=== PATIENT | female | born 1955 | race Caucasian/White ===

== ENCOUNTER → 2017-03-07 | Outpatient (CLI) | payer MEDICAID ==
[2017-03-07 15:02] LABS: Basophils % (A) 0 %; CH 31.2; CHCM 34.6; Eosinophils # (A) 0.1 k/uL (0-0.7); Eosinophils % (A) 2 %; HCT 40.7 % (34.0-46.0); HDW 2.66; HGB 13.8 gm/dL (11.4-16.0); Luc # (Auto) 0.14; Luc % (Auto) 2; Lymphocytes # (A) 1.7 k/uL (1.0-4.8); Lymphocytes % (A) 24 %; MCH 30.7 pg (25.0-35.0); MCHC 33.9 g/dL (31.0-37.0); MCV 90.7 fL (80.0-100.0); Mean Platelet Volume 6.8; Monocytes # (A) 0.5 k/uL (0-1.0); Monocytes % (A) 8 %; Neutrophils # (A) 4.5 k/uL (1.3-7.7); Neutrophils % (A) 64 %; RBC 4.48 m/uL (3.80-5.40); RDW 13.3 % (11.5-15.5); WBC 7.1 k/uL (3.8-10.6); WBC (Perox) 6.53
[2017-03-07 15:14] LABS: Calcium 9.7 mg/dL (8.4-10.2); Potassium 3.7 mmol/L (3.5-5.1); Total Bilirubin 0.5 mg/dL (0.2-1.3); Total Protein 6.9 g/dL (6.3-8.2)
== END | disposition home or self-care (01) ==
LOC: LABWHC1 14:39
PROVIDERS: ATTEND Internal Medicine
DX: R06.00 Dyspnea, unspecified (principal)
CPT/HCPCS: 36415; 80053; 84439; 84443; 85025; 85379

== ENCOUNTER → 2017-03-10 | Outpatient (CLI) | payer MEDICAID ==
[2017-03-10 15:58] LABS: Appearance,Urine Clear (Clear); Bilirubin,Urine Negative (Negative); Glucose,Urine (UA) Negative (Negative); Ketones,Urine Trace (Negative); Leukocyte Esterase,Urine Negative (Negative); Nitrite,Urine Negative (Negative); PH, Urine 5.5 (5.0-8.0); Protein,Urine Trace (Negative); Specific Gravity,Urine 1.029 (1.001-1.035); UA Billing (MACRO vs. MICRO) CHEM
[2017-03-10 16:25] LABS: Non-African American GFR(MDRD) >60 (>60 ml/min/1.73 sqM)
== END | disposition home or self-care (01) ==
LOC: LABWHC1 15:40
PROVIDERS: ATTEND Internal Medicine
DX: N17.9 Acute kidney failure, unspecified (principal)
CPT/HCPCS: 36415; 81003; 82565

== ENCOUNTER → 2017-03-28 | Outpatient (CLI) | payer MEDICAID ==
--- NOTE | 2017-03-29 10:53 | ECHOF ---
Referral Reason:R06.00 Dyspnea, I27.0 Pulmonary Hypertension MEASUREMENTS -------- HEIGHT: 149.9 cm WEIGHT: 62.6 kg BP: 132/60 RVIDd: 2.8 cm (< 3.3) IVSd: 1.0 cm (0.6 - 1.1) LVIDd: 4.0 cm (3.9 - 5.3) LVPWd: 1.2 cm (0.6 - 1.1) IVSs: 1.3 cm LVIDs: 3.1 cm LVPWs: 1.4 cm LAESV Index (A-L): 21.47 ml/m Ao Diam: 3.0 cm (2.0 - 3.7) AV Cusp: 1.6 cm (1.5 - 2.6) LA Diam: 3.2 cm (2.7 - 3.8) MV EXCURSION: 19.783 mm (> 18.000) MV EF SLOPE: 131 mm/s (70 - 150) EPSS: 1.3 cm MV E Dell: 0.68 m/s MV DecT: 291 ms MV A Dell: 0.63 m/s MV E/A Ratio: 1.09 RAP: 5.00 mmHg RVSP: 19.52 mmHg FINDINGS -------- Sinus rhythm. This was a technically adequate study. Overall left ventricular systolic function is normal with, an EF between 55 - 60 %. The right ventricle is normal in size and function. Normal LA size by volume 22+/-6 ml/m2. The right atrium is normal in size. Aortic valve is trileaflet and is mildly thickened. There is no evidence of aortic regurgitation. There is no evidence of aortic stenosis. Mild mitral annular calcification present. There is trace mitral regurgitation. Trace tricuspid regurgitation present. There is no evidence of pulmonary hypertension. The right ventricular systolic pressure, as measured by Doppler, is 19.52mmHg. Pulmonic valve appears structurally normal. The aortic root size is normal. Normal inferior vena cava with normal inspiratory collapse consistent with estimated right atrial pressure of 5 mmHg. The pericardium is normal. There is no pericardial effusion. CONCLUSIONS -------- 1. Sinus rhythm. 2. The aortic root size is normal. 3. There is no pericardial effusion. 4. Overall left ventricular systolic function is normal with, an EF between 55 - 60 %. 5. Normal LA size by volume 22+/-6 ml/m2. 6. Aortic valve is trileaflet and is mildly thickened. 7. Mild mitral annular calcification present. 8. There is trace mitral regurgitation. 9. Trace tricuspid regurgitation present. 10. There is no evidence of pulmonary hypertension. 11. The right ventricular systolic pressure, as measured by Doppler, is 19.52mmHg. INSIDE POLISHER: Beto Hodge RDCS
== END | disposition home or self-care (01) ==
LOC: RADECHMAIN 15:33
PROVIDERS: ATTEND Internal Medicine
DX: I08.1 Rheumatic disorders of both mitral and tricuspid valves (principal); I27.0 Primary pulmonary hypertension; R06.00 Dyspnea, unspecified
CPT/HCPCS: 93306

== ENCOUNTER → 2017-05-15 | Outpatient (CLI) | payer MEDICAID ==
--- NOTE | 2017-05-17 07:36 | MM ---
Reason for exam: screening (asymptomatic). Last mammogram was performed 1 year and 5 months ago. History: Patient is postmenopausal. Took hormonal contraceptives for 6 months beginning at age 46. Taking estrogen for 3 years beginning at age 54. Physical Findings: A clinical breast exam by your physician is recommended on an annual basis and results should be correlated with mammographic findings. MG Screening Mammo w CAD Bilateral CC and MLO view(s) were taken. Prior study comparison: December 17, 2015, bilateral MG screening mammo w CAD. March 06, 2014, bilateral MG screening mammo w CAD. April 10, 2012, CAD bilateral diagnostic mammogram. The breast tissue is heterogeneously dense. This may lower the sensitivity of mammography. No significant changes when compared with prior studies. ASSESSMENT: Negative, BI-RAD 1 RECOMMENDATION: Routine screening mammogram of both breasts in 1 year.
== END | disposition home or self-care (01) ==
LOC: RADMAMWWP 12:38
PROVIDERS: ATTEND Obstetrics & Gynecology
DX: Z12.31 Encounter for screening mammogram for malignant neoplasm of breast (principal)

== ENCOUNTER → 2017-05-22 | Outpatient (CLI) | payer MEDICAID ==
[2017-05-22 08:32] LABS: ALT 39 U/L (9-52); AST 18 U/L (14-36); Alkaline Phosphatase 57 U/L (38-126); Anion Gap 11 mmol/L; Blood Urea Nitrogen 17 mg/dL (7-17); Calcium 9.3 mg/dL (8.4-10.2); Carbon Dioxide 24 mmol/L (22-30); Chloride 106 mmol/L (98-107); Cholesterol 187 mg/dL (<200); Glucose 95 mg/dL (74-99); HDL Cholesterol 55 mg/dL (40-60); Non-African American GFR(MDRD) 58 (>60 ml/min/1.73 sqM); Potassium 4.1 mmol/L (3.5-5.1); Sodium 141 mmol/L (137-145); Total Bilirubin 0.6 mg/dL (0.2-1.3); Total Protein 6.9 g/dL (6.3-8.2); Triglycerides 144 mg/dL (<150)
[2017-05-22 09:20] LABS: Hepatitis C Virus IgG Ab Negative (Negative); Hepatitis C Virus IgG Index 0.07
== END | disposition home or self-care (01) ==
LOC: LABWHC1 07:40
PROVIDERS: ATTEND Internal Medicine
DX: E03.9 Hypothyroidism, unspecified (principal); E55.9 Vitamin D deficiency, unspecified; Z13.9 Encounter for screening, unspecified
CPT/HCPCS: 36415; 80053; 80061; 82306; 84439; 84443; 84481; 86803

== ENCOUNTER → 2017-07-27 | Outpatient (CLI) | payer MEDICAID | END | disposition home or self-care (01) | LOC: LABWHC1 16:11 | PROVIDERS: ATTEND Internal Medicine | DX: E03.9 Hypothyroidism, unspecified (principal) | CPT/HCPCS: 36415; 84439; 84443 ==

== ENCOUNTER → 2017-12-18 | Outpatient (CLI) | payer MEDICAID ==
[2017-12-18 08:23] LABS: Basophils % (A) 1 %; Eosinophils # (A) 0.2 k/uL (0-0.7); Eosinophils % (A) 3 %; HCT 39.9 % (34.0-46.0); HGB 13.5 gm/dL (11.4-16.0); Lymphocytes # (A) 1.9 k/uL (1.0-4.8); Lymphocytes % (A) 39 %; MCH 30.3 pg (25.0-35.0); MCHC 33.8 g/dL (31.0-37.0); MCV 89.5 fL (80.0-100.0); Mean Platelet Volume 7.1; Monocytes # (A) 0.3 k/uL (0-1.0); Monocytes % (A) 6 %; Neutrophils # (A) 2.3 k/uL (1.3-7.7); Neutrophils % (A) 47 %; Platelet Count 237 k/uL (150-450); RBC 4.46 m/uL (3.80-5.40); RDW 13.5 % (11.5-15.5); WBC 4.8 k/uL (3.8-10.6)
[2017-12-18 09:46] LABS: ALT 27 U/L (9-52); AST 19 U/L (14-36); Albumin 4.3 g/dL (3.5-5.0); Alkaline Phosphatase 63 U/L (38-126); Anion Gap 14 mmol/L; Blood Urea Nitrogen 19 mg/dL (7-17); Calcium 9.4 mg/dL (8.4-10.2); Carbon Dioxide 26 mmol/L (22-30); Chloride 104 mmol/L (98-107); Cholesterol 200 mg/dL (<200); Glucose 103 mg/dL (74-99); HDL Cholesterol 43 mg/dL (40-60); LDL Cholesterol,Calculated 126 mg/dL (0-99); Potassium 4.1 mmol/L (3.5-5.1); Sodium 144 mmol/L (137-145); Total Bilirubin 0.5 mg/dL (0.2-1.3); Total Protein 6.9 g/dL (6.3-8.2); Triglycerides 154 mg/dL (<150)
[2017-12-18 09:59] LABS: T4, Free (Free Thyroxine) 0.88 ng/dL (0.78-2.19)
== END | disposition home or self-care (01) ==
LOC: LABWHC1 07:23
PROVIDERS: ATTEND Internal Medicine
DX: J45.909 Unspecified asthma, uncomplicated (principal); E03.9 Hypothyroidism, unspecified; Z13.6 Encounter for screening for cardiovascular disorders
CPT/HCPCS: 36415; 80053; 80061; 84439; 84443; 84481; 85025

== ENCOUNTER 2018-03-11 03:55 | Emergency (ER) | payer MEDICAID ==
[2018-03-11] MEDS ORDERED: ONDANSETRON 4 MG/2 ML VIAL IVP STA (04:25)
[2018-03-11] MEDS ORDERED: SODIUM CHLORIDE 0.9% 2,000 ML IV ONE (04:26)
--- NOTE | 2018-03-11 04:28 | ED ---
General Adult HPI - General Chief complaint: Nausea/Vomiting/Diarrhea Stated complaint: Vomiting Time Seen by Provider: 03/11/18 04:00 Source: patient, RN notes reviewed Mode of arrival: wheelchair Limitations: no limitations - History of Present Illness Initial comments: This is a 62-year-old female presents emergency department stating that for 28 hours she has been vomiting. Patient denies any diarrhea. Patient denies any abdominal pain. Patient states she started Bactrim for infection to stop that since Monday and she continues to vomit. Patient denies any chest pain palpitations or difficulty breathing. Patient states that at her doctor's office the physician assistant clinical director said her lungs did not sound good and that she had an eye infection at that time at this time they prescribed antibiotics. Patient denies any dysuria hematuria urinary frequency. Patient also complains of a mild headache. - Related Data Home Medications Medication Instructions Recorded Confirmed Eszopiclone [Lunesta] 3 mg PO HS PRN 12/18/15 03/29/16 FLUoxetine HCL [Fluoxetine HCl] 20 mg PO HS 12/18/15 03/29/16 Cetirizine HCl [Zyrtec] 10 mg PO DAILY 03/23/16 03/29/16 Fluticasone Nasal [place] [Flonase 1 spray EA NOSTRIL HS 03/23/16 03/29/16 Nasal [place]] Levothyroxine Sodium [Synthroid] 112 mcg PO DAILY 03/23/16 03/29/16 Multivitamins, Thera [Multivitamin] 1 tab PO DAILY 03/23/16 03/29/16 Naproxen Sodium [Aleve] 220 mg PO DAILY PRN 03/23/16 03/29/16 Ubidecarenone [Co Q-10] 100 mg PO DAILY 03/23/16 03/29/16 Allergies Allergy/AdvReac Type Severity Reaction Status Date / Time cephalexin monohydrate Allergy Rash/Hives Verified 03/11/18 04:03 [From Keflex] chlorzoxazone Allergy Rash/Hives Verified 03/11/18 04:03 [From Parafon Forte] oseltamivir [From Tamiflu] Allergy Hallucinati Verified 03/11/18 04:04 ons Penicillins Allergy Rash/Hives Verified 03/11/18 04:03 Review of Systems ROS Statement: Those systems with pertinent positive or pertinent negative responses have been documented in the HPI. ROS Other: All systems not noted in ROS Statement are negative. Past Medical History Past Medical History: Asthma, GERD/Reflux, Thyroid Disorder Additional Past Medical History / Comment(s): GLAUCOMA (NO CURRENT MEDS), SEASONAL ALLERGIES, LOW THYROID., PT STATES UNSURE IF SHE HAD MRSA IN 2010 ( BREAST ABSCESS). History of Any Multi-Drug Resistant Organisms: None Reported Past Surgical History: Appendectomy, Breast Surgery, Section, Tonsillectomy Additional Past Surgical History / Comment(s): X3, RIGHT BREAST ABCESS , LASER EYE SURGERY, CATARACT LEFT, RIGHT EYE. Past Anesthesia/Blood Transfusion Reactions: Motion Sickness Additional Past Anesthesia/Blood Transfusion Reaction / Comment(s): TOLD BY ANESTHESIA -HARD TO INTUBATE. Past Psychological History: Depression Smoking Status: Never smoker Past Alcohol Use History: Occasional Past Drug Use History: None Reported - Past Family History Mother Family Medical History: Cancer General Exam - General Exam Comments Initial Comments: GENERAL: Patient is well-developed and well-nourished. Patient is nontoxic and well- hydrated and is in mild distress. ENT: Neck is soft and supple. No significant lymphadenopathy is noted. Oropharynx is clear. Moist mucous membranes. Neck has full range of motion without eliciting any pain. EYES: The sclera were anicteric and conjunctiva were pink and moist. Extraocular movements were intact and pupils were equal round and reactive to light. Eyelids were unremarkable. PULMONARY: Unlabored respirations. Good breath sounds bilaterally. No audible rales rhonchi or wheezing was noted. CARDIOVASCULAR: There is a regular rate and rhythm without any murmurs gallops or rubs. ABDOMEN: Soft and nontender with normal bowel sounds. No palpable organomegaly was noted. There is no palpable pulsatile mass. SKIN: Skin is clear with no lesions or rashes and otherwise unremarkable. NEUROLOGIC: Patient is alert and oriented x3. Cranial nerves II through XII are grossly intact. Motor and sensory are also intact. Normal speech, volume and content. Symmetrical smile. MUSCULOSKELETAL: Normal extremities with adequate strength and full range of motion. LYMPHATICS: No significant lymphadenopathy is noted PSYCHIATRIC: Normal psychiatric evaluation. Limitations: no limitations Course Vital Signs 03/11/18 03/11/18 03/11/18 04:00 04:13 06:49 Temperature 98.4 F 97.3 F L Pulse Rate 68 69 89 Respiratory 18 16 18 Rate Blood Pressure 133/61 137/63 131/68 O2 Sat by Pulse 98 96 98 Oximetry 03/11/18 07:03 Temperature 98.0 F Pulse Rate Respiratory Rate Blood Pressure O2 Sat by Pulse Oximetry Medical Decision Making - Medical Decision Making CT of the brain is negative Patient had some old from her headache was much improved. Patient was no longer vomiting or nauseated at this time with decided to discharge the patient home. patient will go home with some Zofran - Lab Data Result diagrams: 03/11/18 04:36 03/11/18 04:36 Lab Results 03/11/18 03/11/18 03/11/18 Range/Units 04:36 04:36 04:36 WBC 8.0 (3.8-10.6) k/uL RBC 4.96 (3.80-5.40) m/uL Hgb 14.9 (11.4-16.0) gm/dL Hct 43.0 (34.0-46.0) % MCV 86.7 (80.0-100.0) fL MCH 30.1 (25.0-35.0) pg MCHC 34.7 (31.0-37.0) g/dL RDW 13.4 (11.5-15.5) % Plt Count 277 (150-450) k/uL Neutrophils % 59 % Lymphocytes % 30 % Monocytes % 6 % Eosinophils % 2 % Basophils % 0 % Neutrophils # 4.8 (1.3-7.7) k/uL Lymphocytes # 2.4 (1.0-4.8) k/uL Monocytes # 0.5 (0-1.0) k/uL Eosinophils # 0.2 (0-0.7) k/uL Basophils # 0.0 (0-0.2) k/uL Sodium 141 (137-145) mmol/L Potassium 3.9 (3.5-5.1) mmol/L Chloride 104 (98-107) mmol/L Carbon Dioxide 20 L (22-30) mmol/L Anion Gap 17 mmol/L BUN 15 (7-17) mg/dL Creatinine 1.10 H (0.52-1.04) mg/dL Est GFR (CKD-EPI)AfAm 62 (>60 ml/min/1.73 sqM) Est GFR (CKD-EPI)NonAf 54 (>60 ml/min/1.73 sqM) Glucose 115 H (74-99) mg/dL Calcium 10.3 H (8.4-10.2) mg/dL Magnesium 2.1 (1.6-2.3) mg/dL Total Bilirubin 0.6 (0.2-1.3) mg/dL AST 23 (14-36) U/L ALT 35 (9-52) U/L Alkaline Phosphatase 75 (38-126) U/L Total Protein 7.3 (6.3-8.2) g/dL Albumin 4.6 (3.5-5.0) g/dL Lipase 177 (23-300) U/L Disposition Clinical Impression: Headache Disposition: HOME SELF-CARE Condition: Good Instructions: Acute Nausea and Vomiting (ED) Is patient prescribed a controlled substance at d/c from ED?: No Referrals: Marcelino Wang MD [Primary Care Provider] - 1-2 days Time of Disposition: 06:48
[2018-03-11 04:48] LABS: Basophils % (A) 0 %; Eosinophils # (A) 0.2 k/uL (0-0.7); Eosinophils % (A) 2 %; HGB 14.9 gm/dL (11.4-16.0); Lymphocytes # (A) 2.4 k/uL (1.0-4.8); Lymphocytes % (A) 30 %; MCH 30.1 pg (25.0-35.0); MCHC 34.7 g/dL (31.0-37.0); MCV 86.7 fL (80.0-100.0); Mean Platelet Volume 7.4; Monocytes # (A) 0.5 k/uL (0-1.0); Monocytes % (A) 6 %; Neutrophils # (A) 4.8 k/uL (1.3-7.7); Neutrophils % (A) 59 %; Platelet Count 277 k/uL (150-450); RBC 4.96 m/uL (3.80-5.40); RDW 13.4 % (11.5-15.5)
[2018-03-11 04:59] LABS: Albumin 4.6 g/dL (3.5-5.0); Calcium 10.3 mg/dL (8.4-10.2); Magnesium 2.1 mg/dL (1.6-2.3); Potassium 3.9 mmol/L (3.5-5.1); Total Bilirubin 0.6 mg/dL (0.2-1.3); Total Protein 7.3 g/dL (6.3-8.2)
--- NOTE | 2018-03-11 05:32 | XR ---
EXAMINATION TYPE: XR chest 2V DATE OF EXAM: 03/11/2018 COMPARISON: 02/18/2014 HISTORY: Asthma nausea and vomiting TECHNIQUE: Frontal and lateral views of the chest are obtained. FINDINGS: Heart and mediastinum are normal. Lungs are clear. Diaphragm is normal. Right nipple shado w is noted. Bony thorax is intact. IMPRESSION: Normal chest. No change.
[2018-03-11] MEDS ORDERED: ACETAMINOPHEN IV (For NPO) 1,000 MG in EMPTY BAG 1 BAG IVPB ONE (05:46)
--- NOTE | 2018-03-11 06:36 | CT ---
EXAMINATION TYPE: CT brain wo con DATE OF EXAM: 03/11/2018 COMPARISON: NONE HISTORY: headache and nausea CT DLP: 909.40 mGycm Automated exposure control for dose reduction was used. FINDINGS: The ventricles and sulci appear normal. There is no mass effect nor midline shift. There is no sign o f intracranial hemorrhage. The calvarium is intact. IMPRESSION: NEGATIVE CT SCAN OF THE BRAIN.
[2018-03-11] MEDS ORDERED: ONDANSETRON 4 MG ODT STARTER PACK 2 TAB BTL PO STA (06:46)
[2018-03-11 06:50] VITALS: BP 131/68; PULSE 89; RESP 18
[2018-03-11] MEDS ORDERED: LORazepam 2 MG/ML INJ IV STA (06:53)
[2018-03-11 07:04] VITALS: TEMP 98
--- NOTE | 2018-03-13 05:20 | CDI ---
Documentation Clarification OP Dear Axel Pierre Please provide clinical impression. Thank you, Jack Dowling Cushion Former If you have any questions, please contact Transportation Program Director at [phone] [facility]
== END 2018-03-11 07:14 | disposition home or self-care (01) ==
LOC: EC 03:55
DX: R51 Headache (principal); R11.10 Vomiting, unspecified; J45.909 Unspecified asthma, uncomplicated; E03.9 Hypothyroidism, unspecified; F32.9 Major depressive disorder, single episode, unspecified; Z86.14 Personal history of Methicillin resistant Staphylococcus aureus infection; Z79.51 Long term (current) use of inhaled steroids; Z79.899 Other long term (current) drug therapy; Z88.1 Allergy status to other antibiotic agents; Z88.8 Allergy status to other drugs, medicaments and biological substances; Z88.0 Allergy status to penicillin
CPT/HCPCS: 99284; 96365; 96375 ×2; 96361; 36415; 80053; 83690; 83735; 85025; 71046; 70450; J2060; J2405; J0131; S0119

== ENCOUNTER → 2018-06-04 | Outpatient (CLI) | payer MEDICAID ==
--- NOTE | 2018-06-11 14:11 | MM ---
Reason for exam: screening (asymptomatic). Last mammogram was performed 1 year and 1 month ago. History: Patient is postmenopausal. Took hormonal contraceptives for 6 months beginning at age 46. Took estrogen beginning at age 54. Physical Findings: A clinical breast exam by your physician is recommended on an annual basis and results should be correlated with mammographic findings. MG Screening Mammo w CAD Bilateral CC and MLO view(s) were taken. Prior study comparison: May 15, 2017, bilateral MG screening mammo w CAD. December 17, 2015, bilateral MG screening mammo w CAD. The breast tissue is heterogeneously dense. This may lower the sensitivity of mammography. There is benign appearing round vascular calcifications bilaterally. There is chronic nodularity in the left breast. There is no discrete abnormality. ASSESSMENT: Benign, BI-RAD 2 RECOMMENDATION: Routine screening mammogram of both breasts in 1 year.
== END | disposition home or self-care (01) ==
LOC: RADMAMWWP 10:09
PROVIDERS: ATTEND Internal Medicine
DX: Z12.31 Encounter for screening mammogram for malignant neoplasm of breast (principal)
CPT/HCPCS: 77067

== ENCOUNTER → 2018-08-15 | Outpatient (CLI) | payer MEDICAID ==
[2018-08-15 11:48] LABS: Basophils # (A) 0.1 k/uL (0-0.2); Basophils % (A) 1 %; Eosinophils # (A) 0.3 k/uL (0-0.7); Eosinophils % (A) 6 %; HCT 39.7 % (34.0-46.0); HGB 13.8 gm/dL (11.4-16.0); Lymphocytes # (A) 1.4 k/uL (1.0-4.8); Lymphocytes % (A) 33 %; MCH 31.3 pg (25.0-35.0); MCHC 34.7 g/dL (31.0-37.0); MCV 90.2 fL (80.0-100.0); Mean Platelet Volume 7.1; Monocytes # (A) 0.2 k/uL (0-1.0); Monocytes % (A) 6 %; Neutrophils # (A) 2.2 k/uL (1.3-7.7); Neutrophils % (A) 52 %; Platelet Count 245 k/uL (150-450); RDW 13.1 % (11.5-15.5); WBC 4.2 k/uL (3.8-10.6)
[2018-08-15 18:40] LABS: Albumin 4.4 g/dL (3.80-4.90); Anion Gap 9.8 mmol/L (4.00-12.00); Calcium 9.2 mg/dL (8.7-10.3); Carbon Dioxide 26.2 mmol/L (21.6-31.8); Globulin 2.2 g/dL (2.1-3.7); Potassium 4.3 mmol/L (3.5-5.5); Total Bilirubin 0.6 mg/dL (0.2-1.2); Total Protein 6.6 g/dL (6.2-8.2)
[2018-08-15 18:48] LABS: T4, Free (Free Thyroxine) 1.2 ng/dL (0.80-1.80)
[2018-08-15 20:43] LABS: Hemoglobin A1C 5.3 % (4.0-6.0)
[2018-08-17 06:42] LABS: Mycoplasma IgM Antibody 0.19 INDEX (<=0.90)
== END | disposition home or self-care (01) ==
LOC: LABWHC1 10:59
PROVIDERS: ATTEND Internal Medicine
DX: J02.9 Acute pharyngitis, unspecified (principal); E03.9 Hypothyroidism, unspecified; R05 Cough; R73.09 Other abnormal glucose
CPT/HCPCS: 36415; 80053; 83036; 84439; 84443; 84481; 85025; 86738

== ENCOUNTER → 2019-07-31 | Outpatient (CLI) | payer MEDICARE ==
--- NOTE | 2019-08-01 11:00 | MM ---
Reason for exam: screening (asymptomatic). Last mammogram was performed 1 year and 2 months ago. History: Patient is postmenopausal. Took hormonal contraceptives for 6 months beginning at age 46. Took estrogen beginning at age 54. Physical Findings: A clinical breast exam by your physician is recommended on an annual basis and results should be correlated with mammographic findings. MG 3D Screening Mammo W/Cad Bilateral CC and MLO view(s) were taken. Prior study comparison: June 04, 2018, bilateral MG screening mammo w CAD. May 15, 2017, bilateral MG screening mammo w CAD. The breast tissue is heterogeneously dense. This may lower the sensitivity of mammography. There are benign appearing round calcifications bilaterally. There is no discrete abnormality. ASSESSMENT: Benign, BI-RAD 2 RECOMMENDATION: Routine screening mammogram of both breasts in 1 year.
== END ==
LOC: RADMAMWWP 11:13
PROVIDERS: ATTEND Internal Medicine
DX: Z12.31 Encounter for screening mammogram for malignant neoplasm of breast (principal)
CPT/HCPCS: 77063; 77067

== ENCOUNTER → 2020-08-25 | Outpatient (CLI) | payer MEDICARE ==
[2020-08-25 13:28] VITALS: BP 128/75; PULSE 69; RESP 16; TEMP 98.3
--- NOTE | 2020-08-25 15:05 | P.HPOB ---
History of Present Illness H&P Date: 08/25/20 Chief Complaint: The patient is here for her routine gynecologic exam. This is a 65-year-old with an LMP of 2007. The patient is here to establish with this office. It has been about 1 year since her last pelvic exam. She is without gynecologic complaints and denies any postmenopausal bleeding. Review of Systems Weight has been stable. She denies respiratory, cardiac and G.I. problems. She denies maltreatment or problems with falling. : she denies any significant problems with urinary leakage. Past Medical History Past Medical History: Asthma, GERD/Reflux, Thyroid Disorder Additional Past Medical History / Comment(s): GLAUCOMA (NO CURRENT MEDS), SEASONAL ALLERGIES, HYPOTHYROID. Past AIR[employer] history: GC treated at age 18. Cervical dysplasia treated with CKC in 2009. History of Any Multi-Drug Resistant Organisms: None Reported Past Surgical History: Appendectomy, Breast Surgery, Section, Tonsillectomy Additional Past Surgical History / Comment(s): X3, RIGHT BREAST ABCESS, LASER EYE SURGERY, CATARACT LEFT, RIGHT EYE. Colonoscopy 2014. Past Anesthesia/Blood Transfusion Reactions: Motion Sickness Additional Past Anesthesia/Blood Transfusion Reaction / Comment(s): TOLD BY ANESTHESIA -HARD TO INTUBATE. Past Psychological History: Depression Smoking Status: Never smoker Past Alcohol Use History: Occasional (1 /week) Past Drug Use History: None Reported Additional History: She has been since 1980. 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 Medications and Allergies Home Medications Medication Instructions Recorded Confirmed Type Eszopiclone [Lunesta] 3 mg PO HS PRN 12/18/15 08/25/20 History Levothyroxine Sodium [Synthroid] 112 mcg PO DAILY 03/23/16 08/25/20 History Multivitamins, Thera [Multivitamin] 1 tab PO DAILY 03/23/16 08/25/20 History Albuterol Inhaler [Ventolin Hfa 1 puff INHALATION RT-TID 08/25/20 08/25/20 History Inhaler] Esomeprazole Magnesium [NexIUM] 20 mg PO DAILY 08/25/20 08/25/20 History FLUoxetine HCL [PROzac] 20 mg PO DAILY 08/25/20 08/25/20 History Fluticasone/Salmeterol [Advair 1 inhalation PO BID 08/25/20 08/25/20 History 100-50 Diskus] Fluticasone/Vilanterol [Breo 1 dose INHALATION DAILY 08/25/20 08/25/20 History Ellipta 100-25 Mcg Inhaler] Loratadine [Claritin] 10 mg PO DAILY 08/25/20 08/25/20 History Allergies Allergy/AdvReac Type Severity Reaction Status Date / Time cephalexin monohydrate Allergy Rash/Hives Verified 08/25/20 13:21 [From Keflex] chlorzoxazone Allergy Rash/Hives Verified 08/25/20 13:21 [From Parafon Forte] oseltamivir [From Tamiflu] Allergy Hallucinati Verified 08/25/20 13:21 ons Penicillins Allergy Rash/Hives Verified 08/25/20 13:21 Exam Vital Signs Temp Pulse Resp BP Pulse Ox 08/25/20 13:25 98.3 F 69 16 128/75 98 Intake and Output 08/24/20 08/25/20 08/25/20 22:59 06:59 14:59 Other: Weight 61.235 kg Height 4 feet 11 inches, weight 136 pounds, BMI 27.3. This is a well-developed well-nourished white female who is alert and oriented times 3 in no acute distress. HEENT: Within normal limits. NECK: Supple without mass or thyromegaly. CHEST AND LUNGS: Clear to auscultation. HEART: Regular rate and rhythm. BREASTS: Are without mass or discharge. AXILLARY EXAM: Negative for adenopathy. BACK: Negative for CVA tenderness. ABDOMEN: Soft, nontender, without palpable masses. PELVIC EXAM: Normal external genitalia with mild atrophy. Cervix is fairly flush with the back of the vagina consistent with her previous conization of the cervix. There are no cervical lesions. The vagina appear normal with mild atrophy. There is no unusual discharge. There is no evidence of prolapse. The uterus is midposition, nongravid size and nontender. There are no palpable adnexal masses or tenderness. RECTAL EXAM: Rectovaginal exam is negative for mass or tenderness and is negative for occult blood. EXTREMITIES: Nontender. IMPRESSION: 1. 65-year-old menopausal female status post conization of the cervix in approximately 2009 for cervical dysplasia with normal gynecologic exam. PLAN: 1. Pap smear was performed. She will sign a records release to allow us to obtain records from her previous Pap smears and conization of the cervix. If the conization was for high-grade dysplasia, we will plan on continuing cervical screening for at least 20 years beyond the conization. 2. Self breast awareness was discussed with the patient. 3. Screening mammogram is due and the order slip was given to the patient for this. She has an appointment for this in September. 4. Osteoporosis prevention was discussed. I have stressed the importance of adequate calcium, vitamin D and regular exercise. Recommended amounts of calcium and vitamin D were also discussed. She states she she is scheduled for a bone density test in the near future.. The order slip was given to the patient for this. 5. She did receive her flu shot this fall. 6. The patient was advised to return in 1-2 years for her well woman examination.
--- NOTE | 2020-09-08 15:09 | P.PN ---
Progress Note - Text Progress Note Date: 09/08/20 OUTPATIENT FOLLOW-UP NOTE TEST(S)/RESULTS: Pap smear from 08/25/2020 was negative. METHOD OF NOTIFICATION: A message was left on the patient's voice mail with this result. PATIENT COMMENTS: DIAGNOSIS: Negative Pap smear. 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 PLAN: She was advised to return in one year for her annual well woman exam.
== END | disposition home or self-care (01) ==
LOC: WWCWWP 13:00
PROVIDERS: ATTEND Obstetrics & Gynecology
DX: Z53.9 Procedure and treatment not carried out, unspecified reason (principal)

== ENCOUNTER → 2020-10-07 | Outpatient (CLI) | payer MEDICARE ==
--- NOTE | 2020-10-07 14:29 | BD ---
EXAMINATION TYPE: Axial Bone Density DATE OF EXAM: 10/07/2020 COMPARISON: 05.03.2012 CLINICAL HISTORY: 65 YR OLD FEMALE.....ICD-10 CODE: Z78.0 POST MENOPAUSAL Height: 58.8 Weight: 134 FRAX RISK QUESTIONS: RISK FACTORS HISTORY OF: HX OF LT FOOT FX YOUNG ADULT Family History of Osteoporosis: YES, BUT NO FX Postmenopausal woman: YES, AT ABOUT 55 YRS OLD Hyperparathyroidism: NO Adrenal Insufficiency: NO MEDICATIONS: Prednisone or other steroids: BRIO INHALER, FOR ASTHMA, FOR ABOUT 22 YRS Thyroid Medications: YES, SYNTHROID, FOR ABOUT 31 YRS Additional Medications: PROZAC, REFLUX MEDS, CALCIUM AND VITAMIN D Additional History: REFLUX, ASTHMA EXAM MEASUREMENTS: Bone mineral densitometry was performed using the Overwatch System. Bone mineral density as measured about the Lumbar spine is: ----- L1-L4(G/cm2): 1.266 T Score Values are as follows: ----- L1: 1.1 ----- L2: -0.5 ----- L3: 0.5 ----- L4: 1.3 ----- L1-L4: 0.7 Bone mineral density has: -0.5 % since study of: 05.03.2012 Bone mineral density about the R hip (g/cm2): 1.027 Bone mineral density about the L hip (g/cm2): 0.981 T Score values are as follows: -----R Neck: -0.7 -----L Neck: -0.7 -----R Total: 0.2 -----L Total: -0.2 Bone mineral density has: Decreased -7.0% SINCE STUDY OF 05.03.2012 FRAX%s: THERE IS A 7.7% CHANCE FOR A MAJOR OSTEOPOROTIC FX AND A 0.5% FOR HIP......PROBABILITY FOR FX IN 10 YRS TIME IMPRESSION: No evidence for osteoporosis or osteopenia. NOTE: T-SCORE=SD OF THE YOUNG ADULT MEAN.
== END | disposition home or self-care (01) ==
LOC: RADBDWWP 13:05
PROVIDERS: ATTEND Obstetrics & Gynecology
DX: Z78.0 Asymptomatic menopausal state (principal)
CPT/HCPCS: 77080

== ENCOUNTER → 2020-10-29 | Outpatient (CLI) | payer MEDICARE ==
--- NOTE | 2020-10-30 13:02 | MM ---
Reason for exam: screening (asymptomatic). Last mammogram was performed 1 year and 3 months ago. History: Patient is postmenopausal. Took hormonal contraceptives for 6 months beginning at age 46. Physical Findings: A clinical breast exam by your physician is recommended on an annual basis and results should be correlated with mammographic findings. MG 3D Screening Mammo W/Cad Bilateral CC and MLO view(s) were taken. Prior study comparison: July 31, 2019, bilateral MG 3d screening mammo w/cad. June 04, 2018, bilateral MG screening mammo w CAD. The breast tissue is heterogeneously dense. This may lower the sensitivity of mammography. No significant changes when compared with prior studies. ASSESSMENT: Benign, BI-RAD 2 RECOMMENDATION: Routine screening mammogram of both breasts in 1 year.
== END | disposition home or self-care (01) ==
LOC: RADMAMWWP 15:02
PROVIDERS: ATTEND Obstetrics & Gynecology
DX: Z12.31 Encounter for screening mammogram for malignant neoplasm of breast (principal)
CPT/HCPCS: 77063; 77067

== ENCOUNTER 2020-12-16 09:23 | Day surgery (SDC) | payer MEDICARE ==
[2020-12-14 14:05] VITALS: BMI 27.0
[~2020-12-16 09:23] MED LIST: LACTATED RINGERS 1,000 ML IV SCH; LIDOCAINE 1% (10MG/ML) FOR IV START INTRADERMA PRN
[2020-12-16 10:20] VITALS: TEMP 97.7
[2020-12-16] MEDS ORDERED: ONDANSETRON 4 MG/2 ML VIAL ONE (10:22)
[2020-12-16] MEDS ORDERED: ONDANSETRON 4 MG/2 ML VIAL IVP ONE (10:30)
[2020-12-16] MEDS ORDERED: PROPOFOL 10 MG/ML 20 ML VIAL IV ONE (10:44)
--- NOTE | 2020-12-16 11:01 | P.PCN ---
Date of Procedure: 12/16/20 Procedure(s) Performed: BRIEF HISTORY: Patient is a 65-year-old pleasant white female scheduled for an elective colonoscopy as a part of screening for colon cancer and family history of colon cancer. Her mother was diagnosed with colon cancer at age 67. PROCEDURE PERFORMED: Colonoscopy and polypectomy. PREOPERATIVE DIAGNOSIS: Screening for colon cancer and family history of colon cancer. IV sedation per Anesthesia. PROCEDURE: After informed consent was obtained, the patient, was brought into the endoscopy unit. IV sedation was administered by Anesthesia under continuous monitoring. Digital rectal examination was normal. Initially the Olympus CF-160 flexible video colonoscope was then inserted in the rectum, gradually advanced into the cecum without any difficulty. Careful examination was performed as the scope was gradually being withdrawn. Ileocecal valve and the appendiceal orifice were visualized and appeared normal. Prep was excellent. Mucosa of the cecum normal. In the ascending colon there was a 5 limited polyp that was removed by snare polypectomy. Rest of the, ascending colon, transverse colon, descending colon, sigmoid colon, and rectum appeared normal. Retroflexion was performed in the rectum and no lesions were seen. The patient tolerated the procedure well. IMPRESSION: 5 mm ascending colon polyp status post polypectomy Rest of the colon appeared normal RECOMMENDATIONS: Findings of this examination were discussed with the patient as well as a family. She was advised to follow with the biopsy results. If the biopsy shows an adenoma she can have a repeat colonoscopy in 5 years.
[2020-12-16 11:44] VITALS: BP 115/67; PULSE 66; RESP 20
== END 2020-12-16 11:55 | disposition home or self-care (01) ==
LOC: ORWHC2ENDO 09:23
PROVIDERS: ATTEND Internal Medicine Gastroenterology
DX: Z12.11 Encounter for screening for malignant neoplasm of colon (principal); D12.2 Benign neoplasm of ascending colon; J44.9 Chronic obstructive pulmonary disease, unspecified; E07.9 Disorder of thyroid, unspecified; F32.9 Major depressive disorder, single episode, unspecified; K21.9 Gastro-esophageal reflux disease without esophagitis; Z80.0 Family history of malignant neoplasm of digestive organs; Z88.1 Allergy status to other antibiotic agents; Z88.8 Allergy status to other drugs, medicaments and biological substances; Z79.899 Other long term (current) drug therapy; Z79.890 Hormone replacement therapy; Z91.89 Other specified personal risk factors, not elsewhere classified
CPT/HCPCS: 88305; 45385; J2405; J2704

== ENCOUNTER → 2021-09-13 | Outpatient (CLI) | payer MEDICARE ==
[2021-09-13 19:23] LABS: Basophils # (A) 0.07 X 10*3/uL (0.00-0.10); Basophils % (A) 1.6 %; Eosinophils # (A) 0.22 X 10*3/uL (0.04-0.35); Eosinophils % (A) 4.9 %; HCT 42.2 % (37.2-46.3); HGB 13.4 g/dL (12.0-15.0); Lymphocytes # (A) 1.64 X 10*3/uL (0.90-5.00); Lymphocytes % (A) 36.4 %; MCH 30.2 pg (27.0-32.0); MCHC 31.8 g/dL (32.0-37.0); Mean Platelet Volume 10.8 fL (9.5-12.2); Monocytes # (A) 0.32 X 10*3/uL (0.20-1.00); Monocytes % (A) 7.1 %; Neutrophils # (A) 2.24 X 10*3/uL (1.80-7.70); Neutrophils % (A) 49.8 %; Platelet Count 233 X 10*3/uL (140-440); RBC 4.44 X 10*6/uL (4.10-5.20); RDW 12.7 % (11.5-14.5)
[2021-09-13 20:25] LABS: ALT 14 U/L (8-44); AST 14 U/L (13-35); African American GFR (CKD) 61.5 (60.0-200.0); Albumin 4.5 g/dL (3.8-4.9); Albumin/Globulin Ratio 1.97 (1.60-3.17); Alkaline Phosphatase 73 U/L (41-126); BUN/Creat Ratio 13.89 Ratio (12.00-20.00); Calcium 9.2 mg/dL (8.7-10.3); Carbon Dioxide 24.1 mmol/L (21.6-31.8); Chloride 103 mmol/L (96-109); Chol/HDL Ratio 4.68 Ratio; Globulin 2.3 g/dL (1.6-3.3); Glucose 100 mg/dL (70-110); LDL Cholesterol,Calculated 134.8 mg/dL (0.0-131.0); Non-African American GFR(CKD) 53.1 (60.0-200.0); Potassium 4.3 mmol/L (3.5-5.5); Sodium 139 mmol/L (135-145); Total Protein 6.8 g/dL (6.2-8.2)
== END | disposition home or self-care (01) ==
LOC: LABWHC1 11:10
PROVIDERS: ATTEND Family Medicine
DX: Z13.6 Encounter for screening for cardiovascular disorders (principal); Z82.49 Family history of ischemic heart disease and other diseases of the circulatory system
CPT/HCPCS: 36415; 80053; 80061; 85025

== ENCOUNTER → 2021-11-18 | Outpatient (CLI) | payer MEDICARE ==
--- NOTE | 2021-11-18 15:09 | MM ---
Reason for exam: additional evaluation requested from abnormal screening. Last mammogram was performed less than 1 month ago. History: Patient is postmenopausal. Took hormonal contraceptives for 6 months beginning at age 46. Physical Findings: Nurse did not find any significant physical abnormalities on exam. MG 3D Work Up W/Cad LT CC with magnification, LM with magnification, and LM view(s) were taken of the left breast. Prior study comparison: November 09, 2021, bilateral MG 3d screening mammo w/cad. October 29, 2020, bilateral MG 3d screening mammo w/cad. The breast tissue is heterogeneously dense. This may lower the sensitivity of mammography. Finding: There are five fine, grouped/clustered calcifications in the lower quadrant, posterior position of the left breast at skin level. These results were verbally communicated with the patient and result sheet given to the patient on 11/18/21. ASSESSMENT: Probably benign, BI-RAD 3 RECOMMENDATION: Follow-up diagnostic mammogram of the left breast in 6 months. (magnification and ML)
== END | disposition home or self-care (01) ==
LOC: RADMAMWWP 13:39
PROVIDERS: ATTEND Obstetrics & Gynecology
DX: R92.1 Mammographic calcification found on diagnostic imaging of breast (principal); Z78.0 Asymptomatic menopausal state
CPT/HCPCS: 77065; G0279; 77061

== ENCOUNTER → 2022-05-30 | Outpatient (CLI) | payer MEDICARE ==
--- NOTE | 2022-06-02 11:49 | MM ---
Reason for Exam: Additional evaluation requested from prior study. Last screening mammogram was performed 7 month(s) ago. Patient History: Menarche at age 12. First Full-Term at age 20. Postmenopausal. Patient has history of breast feeding. Hormonal Contraceptives for 6 months from age 46 until age 46. Risk Values: Cate 5 year model risk: 1.5%. NCI Lifetime model risk: 5.2%. Prior Study Comparison: 12/17/2015 Bilateral Screening Mammogram, [facility]. 05/15/2017 Bilateral Screening Mammogram, [facility]. 06/04/2018 Bilateral Screening Mammogram, [facility]. 07/31/2019 Bilateral Screening Mammogram, [facility]. 10/29/2020 Bilateral Screening Mammogram, [facility]. 11/09/2021 Bilateral Screening Mammogram, [facility]. 11/18/2021 Left Diagnostic Mammogram, [facility]. Tissue Density: Left: There are scattered fibroglandular densities. Findings: Analyzed By CAD. There are some punctate calcifications present. Additional pain medication compression views were obtained. No suspicious cluster microcalcifications. No spiculated or lobular masses, architectural distortion or other secondary signs of malignancy are mammographically apparent. Overall Assessment: Probably benign, BI-RAD 3 Management: Diagnostic Mammogram of both breasts in 6 months. A negative mammogram report should not preclude additional follow up of suspicious palpable abnormalities. Patient should continue monthly self breast exam. A clinical breast exam by your physician is recommended on an annual basis and results should be correlated with mammographic findings. Electronically signed and approved by: Victorino Bonner D.O. Radiologis
== END | disposition home or self-care (01) ==
LOC: RADMAMWWP 05-16 14:12
PROVIDERS: ATTEND Obstetrics & Gynecology
DX: R92.8 Other abnormal and inconclusive findings on diagnostic imaging of breast (principal)
CPT/HCPCS: 77065; G0279; 77061

== ENCOUNTER → 2023-02-10 | Outpatient (CLI) | payer MEDICARE ==
--- NOTE | 2023-02-13 08:24 | MM ---
Reason for Exam: Screening (asymptomatic). Last mammogram was performed 1 year(s) and 3 month(s) ago. Patient History: Menarche at age 12. First Full-Term at age 20. Postmenopausal. Patient has history of breast feeding. Hormonal Contraceptives for 6 months from age 46 until age 46. Risk Values: Cate 5 year model risk: 1.5%. NCI Lifetime model risk: 5.0%. Prior Study Comparison: 11/09/2021 Bilateral Screening Mammogram, [facility]. 11/18/2021 Left Diagnostic Mammogram, [facility]. 05/30/2022 Left MG 3D diag mammo w/cad LT, [facility]. Tissue Density: The breast tissue is heterogeneously dense. This may lower the sensitivity of mammography. Findings: Analyzed By CAD. There is no suspicious group of microcalcifications or new suspicious mass in either breast. Overall Assessment: Negative, BI-RAD 1 Management: Screening Mammogram of both breasts in 1 year. A clinical breast exam by your physician is recommended on an annual basis and results should be correlated with mammographic findings. [facility] will attempt to contact patient to return for supplemental views and ultrasound if indicated. Electronically signed and approved by: Scott Paulson DO
== END | disposition home or self-care (01) ==
LOC: RADMAMWWP 14:40
PROVIDERS: ATTEND Family Medicine
DX: Z12.31 Encounter for screening mammogram for malignant neoplasm of breast (principal); Z78.0 Asymptomatic menopausal state
CPT/HCPCS: 77063; 77067

== ENCOUNTER → 2023-09-26 | Outpatient (CLI) | payer MEDICARE ==
[2023-09-26 11:03] VITALS: BP 107/71; PULSE 72; RESP 16; TEMP 97.8
--- NOTE | 2023-09-26 12:30 | P.HPOB ---
History of Present Illness H&P Date: 09/26/23 Chief Complaint: The patient is here for her routine gynecologic exam. This is a 68-year-old with an LMP of 2007. The patient has been experiencing vaginal dryness and discomfort with sexual intercourse. She is otherwise without gynecologic complaints and denies any postmenopausal bleeding. Review of Systems She has lost about 4 pounds over the past year. Respiratory: She feels occasionally slightly short of breath and attributes this to some anxiety and recent stress. She denies cardiac or GI problems. Past Medical History Past Medical History: Asthma, GERD/Reflux, Hyperlipidemia, Thyroid Disorder Additional Past Medical History / Comment(s): GLAUCOMA (NO CURRENT MEDS), SEASONAL ALLERGIES, HYPOTHYROID. 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 Cervical dysplasia treated with CKC in 2009. History of Any Multi-Drug Resistant Organisms: None Reported Past Surgical History: Appendectomy, Breast Surgery, Section, Tonsillectomy Additional Past Surgical History / Comment(s): X4, RIGHT BREAST ABCESS, LASER EYE SURGERY, CATARACT LEFT, RIGHT EYE. Conization of the cervix in approximately 2009. Colonoscopy 2020(next after 5yr). Past Anesthesia/Blood Transfusion Reactions: Motion Sickness Additional Past Anesthesia/Blood Transfusion Reaction / Comment(s): pt stated "was told by Dr Marks was difficulty intubation", prior Anesthesia Record by Dr Marks dated 08-20-12 in [facility] and applied to chart to review if needed. Past Psychological History: Depression (PHQ 9 questionnaire was given and she scored a 7.) Smoking Status: Never smoker Past Alcohol Use History: Occasional (1 drink per month.) Past Drug Use History: None Reported Additional History: She has been since 1980 and is sexually active. 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 Sister(s) Family Medical History: Myocardial Infarction ([place]) Medications and Allergies Home Medications Medication Instructions Recorded Confirmed Type Eszopiclone [Lunesta] 2 mg PO HS PRN 12/18/15 09/26/23 History Levothyroxine Sodium [Synthroid] 100 mcg PO QAM 03/23/16 09/26/23 History Multivitamins, Thera [Multivitamin] 1 tab PO DAILY 03/23/16 09/26/23 History Albuterol Inhaler [Ventolin Hfa 1 puff INHALATION RT-TID 08/25/20 09/26/23 History Inhaler] FLUoxetine HCL [PROzac] 20 mg PO HS 08/25/20 09/26/23 History Calcium Carbonate [Calcium] 600 mg PO DAILY 11/09/21 09/26/23 History Cholecalciferol (Vitamin D3) 125 mcg PO DAILY 11/09/21 09/26/23 History [Vitamin D3 (125 MCG = 5,000 IU)] Famotidine 40 mg PO HS 09/26/23 09/26/23 History Fluticasone/Vilanterol [Breo 1 inhalation INHALATION DAILY 09/26/23 09/26/23 History Ellipta 200-25 Mcg Inhaler] Mometasone Furoate [Nasonex 50 MCG] 1 spray NASAL DAILY 09/26/23 09/26/23 History Mupirocin 2% Oint [Bactroban 2% 1 applic NASAL DAILY 09/26/23 09/26/23 History Oint] Allergies Allergy/AdvReac Type Severity Reaction Status Date / Time cephalexin monohydrate Allergy Rash/Hives Verified 09/26/23 10:53 [From Keflex] chlorzoxazone Allergy Rash/Hives Verified 09/26/23 10:53 [From Parafon Forte] oseltamivir [From Tamiflu] Allergy Hallucinati Verified 09/26/23 10:53 ons Penicillins Allergy Rash/Hives Verified 09/26/23 10:53 Exam Vital Signs Temp Pulse Resp BP Pulse Ox 09/26/23 10:53 97.8 F 72 16 107/71 98 Intake and Output 09/25/23 09/26/23 09/26/23 22:59 06:59 14:59 Other: Weight 60.328 kg Height 4 feet 10-1/2 inches, weight 133 pounds, BMI 27.3. This is a well-developed well-nourished white female who is alert and oriented times 3 in no acute distress. HEENT: Within normal limits. NECK: Supple without mass or thyromegaly. CHEST AND LUNGS: Clear to auscultation. HEART: Regular rate and rhythm. BREASTS: Are without mass or discharge. AXILLARY EXAM: Negative for adenopathy. BACK: Negative for CVA tenderness. ABDOMEN: Soft, nontender, without palpable masses. PELVIC EXAM: Normal external genitalia with mild atrophy. Cervix and vagina appear normal with mild atrophy. The cervix appears somewhat stenotic and is nearly flush with the back of the vagina consistent with her previous conization. There is no unusual discharge. There is no evidence of prolapse. The uterus is midposition, nongravid size and nontender. There are no palpable adnexal masses or tenderness. RECTAL EXAM: Rectovaginal exam is negative for mass or tenderness and is negative for occult blood. EXTREMITIES: Nontender. IMPRESSION: 1. 68-year-old female status post conization of the cervix in approximately 2009 with unremarkable gynecologic exam. 2. Dyspareunia with vaginal dryness secondary to genital atrophy. PLAN: 1. Pap smear was performed. We will continue to do Pap smears approximately every 2-3 years until 2029 because of her history of a conization for cervical dysplasia in 2009. 2. Self breast awareness was discussed with the patient. We have also discussed symptoms associated with inflammatory breast cancer. 3. Screening mammogram was done on 02/10/2023 and was benign. She will repeat this after 1 year. The order slip was given to the patient for this. 4. Trial of Premarin vaginal cream. One sample tube was given to the patient. She will insert 1 g into the vagina 2 times weekly. She will also continue to use a lubricant. The electronic prescription will be sent to [facility] pharmacy on and . 5. Osteoporosis prevention was discussed. I have stressed the importance of adequate calcium, vitamin D and regular exercise. Recommended amounts of calcium and vitamin D were also discussed. She had a normal bone density test in 2019 and we'll plan on repeating this in approximately 2025. 6. PHQ 9 questionnaire was given to the patient and she scored 7. This is consistent with possible mild depression. She is taking Prozac for depression and will continue to follow-up with her PCP for this. She knows to call her PCP if she believes her symptoms are worsening or if problems. She attributes some of the depression to stress related to her daughter's marriage. She is also considering counseling. 7. She was advised to return in one year for her annual well woman exam and as needed.
== END ==
LOC: WWCWWP 10:42
PROVIDERS: ATTEND Obstetrics & Gynecology
DX: N94.10 Unspecified dyspareunia (principal); N95.2 Postmenopausal atrophic vaginitis; J45.909 Unspecified asthma, uncomplicated; K21.9 Gastro-esophageal reflux disease without esophagitis; E78.5 Hyperlipidemia, unspecified; E03.9 Hypothyroidism, unspecified; F32.A Depression, unspecified; Z79.51 Long term (current) use of inhaled steroids; Z79.890 Hormone replacement therapy; Z87.412 Personal history of vulvar dysplasia; Z88.0 Allergy status to penicillin; Z88.1 Allergy status to other antibiotic agents; Z88.8 Allergy status to other drugs, medicaments and biological substances; Z79.899 Other long term (current) drug therapy

== ENCOUNTER → 2024-05-15 | Outpatient (CLI) | payer MEDICARE ==
--- NOTE | 2024-05-17 10:05 | MM ---
Reason for Exam: Screening (asymptomatic). Last mammogram was performed 1 year(s) and 3 month(s) ago. Patient History: Menarche at age 12. First Full-Term at age 20. Postmenopausal. Patient has history of breast feeding. Hormonal Contraceptives for 6 months from age 46 until age 46. Risk Values: Cate 5 year model risk: 1.5%. NCI Lifetime model risk: 4.8%. Prior Study Comparison: 11/18/2021 Left Diagnostic Mammogram, [facility]. 05/30/2022 Left MG 3D diag mammo w/cad LT, [facility]. 02/10/2023 Bilateral MG 3D screening mammo w/cad, [facility]. Tissue Density: The breasts are heterogeneously dense, which may obscure small masses. Findings: Analyzed By CAD. Asymmetric density right MLO view 4.3 cm from the nipple above the level of the nipple. Additional views are recommended which are to include a true lateral view as well as spot compression views in both orthogonal planes. No suspicious microcalcifications are seen within either breast. No left breast mass or distortion seen. Overall Assessment: Incomplete: need additional imaging evaluation, BI-RAD 0 Management: Diagnostic Mammogram of the right breast. . Patient should continue monthly self-breast exams. A clinical breast exam by your physician is recommended on an annual basis. This exam should not preclude additional follow-up of suspicious palpable abnormalities. Note on Cate scores and lifetime risk: 1. A Cate score greater than 3% is considered moderate risk. If this is the case, consider specialist referral to assess eligibility for a risk reducing agent. 2. If overall lifetime risk for the development of breast cancer is 20% or higher, the patient may qualify for future screening with alternating mammogram and breast MRI. Electronically signed and approved by: Aleks Blanton M.D. Radiologis
== END | disposition home or self-care (01) ==
LOC: RADMAMWWP 13:51
PROVIDERS: ATTEND Family Medicine
DX: Z12.31 Encounter for screening mammogram for malignant neoplasm of breast (principal); Z78.0 Asymptomatic menopausal state; R92.333 Mammographic heterogeneous density, bilateral breasts
CPT/HCPCS: 77063; 77067

== ENCOUNTER → 2024-05-22 | Outpatient (CLI) | payer MEDICARE ==
--- NOTE | 2024-05-22 10:40 | MM ---
Reason for Exam: Additional evaluation requested from abnormal screening. Last screening mammogram was performed less than 1 month ago. Patient History: Menarche at age 12. First Full-Term at age 20. Postmenopausal. Patient has history of breast feeding. Hormonal Contraceptives for 6 months from age 46 until age 46. Risk Values: Cate 5 year model risk: 1.5%. NCI Lifetime model risk: 4.8%. Prior Study Comparison: 06/04/2018 Bilateral Screening Mammogram, [facility]. 07/31/2019 Bilateral Screening Mammogram, [facility]. 10/29/2020 Bilateral Screening Mammogram, [facility]. 11/09/2021 Bilateral Screening Mammogram, [facility]. 11/18/2021 Left Diagnostic Mammogram, [facility]. 05/30/2022 Left MG 3D diag mammo w/cad LT, [facility]. 02/10/2023 Bilateral MG 3D screening mammo w/cad, [facility]. 05/15/2024 Bilateral MG 3D screening mammo w/cad, [facility]. Tissue Density: Right: The breasts are heterogeneously dense, which may obscure small masses. Findings: Analyzed By CAD. Area of asymmetric density appears much improved on spot compression imaging. Precautionary six-month follow-up is advised. Overall Assessment: Probably benign, BI-RAD 3 Management: Screening Mammogram of both breasts in 1 year. . Results were given to the patient verbally at the time of exam. Patient should continue monthly self-breast exams. A clinical breast exam by your physician is recommended on an annual basis. This exam should not preclude additional follow-up of suspicious palpable abnormalities. Note on Cate scores and lifetime risk: 1. A Cate score greater than 3% is considered moderate risk. If this is the case, consider specialist referral to assess eligibility for a risk reducing agent. 2. If overall lifetime risk for the development of breast cancer is 20% or higher, the patient may qualify for future screening with alternating mammogram and breast MRI. Electronically signed and approved by: Aleks Blanton M.D. Radiologis
== END | disposition home or self-care (01) ==
LOC: RADMAMWWP 10:10
PROVIDERS: ATTEND Family Medicine
DX: R92.8 Other abnormal and inconclusive findings on diagnostic imaging of breast (principal); R92.333 Mammographic heterogeneous density, bilateral breasts; Z78.0 Asymptomatic menopausal state
CPT/HCPCS: 77065; G0279; 77061

== ENCOUNTER → 2024-09-24 | Outpatient (CLI) | payer MEDICARE ==
[2024-09-24 14:20] VITALS: BP 126/80; PULSE 75; RESP 16; TEMP 98
--- NOTE | 2024-09-24 16:28 | P.HPOB ---
History of Present Illness H&P Date: 09/24/24 Chief Complaint: The patient is here for her routine gynecologic exam. This is a 77-year-old with an LMP of 2007. The patient is without gynecologic complaints and denies any postmenopausal bleeding. She briefly tried estrogen vaginal cream, but she states she is no longer sexually active so she discontinued it. Review of Systems The patient has lost 3 pounds over the last year. She denies respiratory, cardiac, or G.I. problems. Past Medical History Past Medical History: Asthma, GERD/Reflux, Hyperlipidemia, Thyroid Disorder Additional Past Medical History / Comment(s): GLAUCOMA (NO CURRENT MEDS), SEASONAL ALLERGIES, HYPOTHYROID. 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 Cervical dysplasia treated with CKC in 2009. History of Any Multi-Drug Resistant Organisms: None Reported Past Surgical History: Appendectomy, Breast Surgery, Section, Tonsillectomy Additional Past Surgical History / Comment(s): X4, RIGHT BREAST ABCESS, LASER EYE SURGERY, CATARACT LEFT, RIGHT EYE. Conization of the cervix in approximately 2009. Colonoscopy 2020(next after 5yr). Past Anesthesia/Blood Transfusion Reactions: Motion Sickness Additional Past Anesthesia/Blood Transfusion Reaction / Comment(s): pt stated "was told by Dr Marks was difficulty intubation", prior Anesthesia Record by Dr Marks dated 08-20-12 in [facility] and applied to chart to review if needed. Past Psychological History: Depression Smoking Status: Never smoker Past Alcohol Use History: Rare (2 drinks per year) Past Drug Use History: None Reported Additional History: She has been since 1980 and is no longer sexually active. 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 Sister(s) Family Medical History: Myocardial Infarction ([place]) Medications and Allergies Home Medications Medication Instructions Recorded Confirmed Type Eszopiclone [Lunesta] 2 mg PO HS PRN 12/18/15 09/24/24 History Levothyroxine Sodium [Synthroid] 100 mcg PO QAM 03/23/16 09/24/24 History Multivitamins, Thera [Multivitamin] 1 tab PO DAILY 03/23/16 09/24/24 History Albuterol Inhaler [Ventolin Hfa 1 puff INHALATION RT-TID 08/25/20 09/24/24 History Inhaler] FLUoxetine HCL [PROzac] 20 mg PO HS 08/25/20 09/24/24 History Calcium Carbonate [Calcium] 600 mg PO DAILY 11/09/21 09/24/24 History Famotidine 40 mg PO HS 09/26/23 09/24/24 History Fluticasone/Vilanterol [Breo 1 inhalation INHALATION DAILY 09/26/23 09/24/24 History Ellipta 200-25 Mcg Inhaler] Mometasone Furoate [Nasonex 50 MCG] 1 spray NASAL DAILY 09/26/23 09/24/24 History Allergies Allergy/AdvReac Type Severity Reaction Status Date / Time cephalexin monohydrate Allergy Rash/Hives Verified 09/24/24 14:20 [From Keflex] chlorzoxazone Allergy Rash/Hives Verified 09/24/24 14:20 [From Parafon Forte] oseltamivir [From Tamiflu] Allergy Hallucinati Verified 09/24/24 14:20 ons Penicillins Allergy Rash/Hives Verified 09/24/24 14:20 Exam Vital Signs Temp Pulse Resp BP Pulse Ox 09/24/24 14:18 98 F 75 16 126/80 96 Intake and Output 09/24/24 09/24/24 09/24/24 06:59 14:59 22:59 Other: Weight 58.967 kg Height 4 feet 10 inches, weight 130 pounds, BMI 27.2. This is a well-developed well-nourished right female who is alert and oriented times 3 in no acute distress. HEENT: Within normal limits. NECK: Supple without mass or thyromegaly. CHEST AND LUNGS: Clear to auscultation. HEART: Regular rate and rhythm. BREASTS: Are without mass or discharge. AXILLARY EXAM: Negative for adenopathy. BACK: Negative for CVA tenderness. ABDOMEN: Soft, nontender, without palpable masses. PELVIC EXAM: Normal external genitalia with mild to moderate atrophy. Cervix and vagina appear normal with mild to moderate atrophy. The cervix is flush with the back of the vagina consistent with her previous conization of the cervix. There is no unusual discharge. There is no evidence of prolapse. The uterus is midposition, nongravid size and nontender. There are no palpable adnexal masses or tenderness. RECTAL EXAM: Rectovaginal exam is negative for mass or tenderness and is negative for occult blood. EXTREMITIES: Nontender. IMPRESSION: 1. 77-year-old menopausal female with normal gynecologic exam. 2. History of previous conization of the cervix in 2009 with very short cervix. PLAN: 1. Pap smears will be continued until approximately 2034. Pap smear was deferred since she had a negative Pap smear on 09/26/2023. 2. Self breast awareness was discussed with the patient. We have also discussed symptoms associated with inflammatory breast cancer. 3. Her last bilateral mammogram was done in April 2024 and a right breast workup was needed which was benign. Screening mammogram was recommended after 1 year. 4. Osteoporosis prevention was discussed. She had a normal bone density test done on 10/07/2020 and I had recommended waiting 6 years to do an her next bone density test. Her PCP may be having her do another in the near future. 5. She was advised to return in one year for her annual well woman exam.
== END ==
LOC: WWCWWP 13:57
PROVIDERS: ATTEND Obstetrics & Gynecology
DX: Z01.419 Encounter for gynecological examination (general) (routine) without abnormal findings (principal); Z78.0 Asymptomatic menopausal state; Z90.49 Acquired absence of other specified parts of digestive tract; Z88.1 Allergy status to other antibiotic agents; Z88.8 Allergy status to other drugs, medicaments and biological substances; Z88.0 Allergy status to penicillin

== ENCOUNTER → 2025-05-08 | Outpatient (CLI) | payer MEDICARE ==
--- NOTE | 2025-05-08 14:43 | MM ---
Reason for Exam: Screening (asymptomatic). Last screening mammogram was performed 12 month(s) ago. Patient History: Menarche at age 12. First Full-Term at age 20. Postmenopausal. Patient has history of breast feeding. Hormonal Contraceptives for 6 months from age 46 until age 46. Risk Values: Cate 5 year model risk: 1.5%. NCI Lifetime model risk: 4.5%. Prior Study Comparison: 05/15/2024 Bilateral MG 3D screening mammo w/cad, [facility]. 05/22/2024 Right MG 3D work up w/cad RT, [facility]. 12/11/2024 Right MG 3D diag mammo w/cad RT, [facility]. Tissue Density: The breasts are extremely dense, which lowers the sensitivity of mammography. Findings: Analyzed By CAD. There is no suspicious group of microcalcifications or new suspicious mass in either breast. Surgical clip in the left breast. Stable chronic nodularity upper margin left breast. Overall Assessment: Benign, BI-RAD 2 Management: Screening Mammogram of both breasts in 1 year. . Patient should continue monthly self-breast exams. A clinical breast exam by your physician is recommended on an annual basis. This exam should not preclude additional follow-up of suspicious palpable abnormalities. Note on Cate scores and lifetime risk: 1. A Cate score greater than 3% is considered moderate risk. If this is the case, consider specialist referral to assess eligibility for a risk reducing agent. 2. If overall lifetime risk for the development of breast cancer is 20% or higher, the patient may qualify for future screening with alternating mammogram and breast MRI. [facility], , 05/08/2025 2:40 PM. Electronically signed and approved by: Kelton Diaz M.D. Radiologis
== END | disposition home or self-care (01) ==
LOC: RADMAMWWP 14:11
PROVIDERS: ATTEND Family Medicine
DX: Z12.31 Encounter for screening mammogram for malignant neoplasm of breast (principal); R92.343 Mammographic extreme density, bilateral breasts; Z78.0 Asymptomatic menopausal state; Z92.0 Personal history of contraception
CPT/HCPCS: 77063; 77067